=== PATIENT | female | born 1945 | race Caucasian/White ===

== ENCOUNTER 2017-11-24 10:45 | Inpatient (IN) | payer OTHER ==
[~2017-11-24] VITALS: Ht 162.6 cm; Wt 72.6 kg
[2017-11-24] MEDS ORDERED: SODIUM CHLORIDE 0.9% 500ML 500 ML IV STA (10:53)
[2017-11-24] MEDS ORDERED: ONDANSETRON HCL INJ 2 MG/ML VIAL IV STA (10:53)
[2017-11-24] MEDS ORDERED: DIATRIZOATE MEGL/DIATRIZOA SOD 30 ML BTL PO ONE (11:26)
--- NOTE | 2017-11-24 12:07 | Diagnostic Imaging Report ---
PROCEDURE: CHEST SINGLE (PORTABLE) COMPARISON: None. INDICATIONS: ABDOMINAL PAIN FINDINGS: LUNGS: No mass or infiltrate. Pulmonary vascular markings are normal. PLEURA: No effusions or pneumothorax. HEART \T\ MEDIASTINUM: The heart is within normal size-limits. BONES \T\ SOFT TISSUES: Unremarkable. CONCLUSION: No acute thoracic abnormality. Dictated by: Nikkie Cash M.D. on 11/24/2017 at 12:08 Electronically approved by: Nikkie Cash M.D. on 11/24/2017 at 12:08
[2017-11-24 12:12] LABS: BASOPHILS % 0.4 % (0.0-1.0); EOSINOPHILS # (AUTO) 0.1 (0.0-0.4); EOSINOPHILS % 0.5 % (0.0-6.0); LYMPHOCYTES # (AUTO) 1.8 (1.0-3.2); LYMPHOCYTES % 19.6 % (18.0-39.1); MEAN CORPUSCULAR HEMOGLOBIN 33.6 pg (28-32); MEAN CORPUSCULAR HGB CONC 34.1 g/dL (31-35); MEAN CORPUSCULAR VOLUME 98.3 fL (81-99); MONOCYTES # (AUTO) 0.6 (0.2-0.8); MONOCYTES % 6.7 % (4.4-11.3); NEUTROPHILS # (AUTO) 6.7 (2.1-6.9); NEUTROPHILS % 72.5 % (38.7-80.0); PLATELET COUNT 283 x10e3/uL (140-360); RED BLOOD COUNT 4.17 x10e6/uL (3.6-5.1); RED CELL DISTRIBUTION WIDTH 12.5 % (11.7-14.4)
[2017-11-24 12:38] LABS: INR 0.98; PROTHROMBIN TIME 12.2 seconds (11.9-14.5)
[2017-11-24 12:39] LABS: PARTIAL THROMBOPLASTIN TIME 25.4 seconds (23.8-35.5)
[2017-11-24 12:50] LABS: ALANINE AMINOTRANSFERASE 56 IU/L (0-55); ALBUMIN 4.4 g/dL (3.5-5.0); ALKALINE PHOSPHATASE 84 IU/L (40-150); ANION GAP 18.4 mmol/L (8-16); BLOOD UREA NITROGEN 12 mg/dL (7-26); BUN/CREATININE RATIO 13 (6-25); CARBON DIOXIDE 22 mmol/L (22-29); CHLORIDE 102 mmol/L (98-107); CREATINE KINASE 55 IU/L (29-168); CREATININE, SERUM 0.89 mg/dL (0.57-1.11); EST GLOMERULAR FILTRATION RATE > 60 ML/MIN (60-); GLUCOSE 98 mg/dL (74-118); LIPASE 26 U/L (8-78); MAGNESIUM 2.2 MG/DL (1.3-2.1); POTASSIUM 3.4 mmol/L (3.5-5.1); SODIUM 139 mmol/L (136-145)
[2017-11-24 13:36] LABS: BILIRUBIN,URINE NEGATIVE (NEGATIVE); CLARITY,URINE CLEAR (CLEAR); COLOR,URINE YELLOW (YELLOW); KETONES,URINE NEGATIVE (NEGATIVE); LEUKOCYTE ESTERASE ,URINE NEGATIVE (NEGATIVE); NITRITE,URINE NEGATIVE (NEGATIVE); PROTEIN,URINE DIPSTICK NEGATIVE (NEGATIVE); URINE UROBILINOGEN 0.2 mg/dL (0.2 - 1)
--- NOTE | 2017-11-24 13:36 | Diagnostic Imaging Report ---
PROCEDURE:CT ABDOMEN AND PELVIS WITH CONTRAST COMPARISON:None. INDICATIONS:LEFT LOWER QUADRANT PAIN TECHNIQUE: Multidetector CT scanning of the abdomen and pelvis was performed after the administration of 100 cc of nonionic contrast. Coronal and sagittal reformations were obtained. Routine protocol performed. FINDINGS: Lung bases: Lung bases are clear. Visualized portion of the mediastinum and trachea small hiatal hernia. Liver: Diffusely decreased in attenuation consistent with steatosis. The right lobe measures 18 cm in length. No mass. Biliary: Gallbladder and biliary tree are normal. Spleen: Normal size and attenuation without mass Pancreas: Normal attenuation. No mass or ductal dilatation. Adrenal Glands: No mass Kidneys: Symmetric enhancement. There are punctate low attenuating lesions in the right kidney, too small characterize. A low attenuating lesion in the lower pole of the left kidney measures 7 mm with possible enhancing component. A low attenuating lesion in the interpolar cortex measures 1.8 x 1.7 cm and may contain a linear calcification in the wall or enhancing septation. No hydronephrosis. Gastrointestinal: The stomach is normal in appearance. Small bowel is normal in diameter with normal wall thickness. There is significant diverticula in the left colon completely the sigmoid colon. There is inflammation and mural hyperemia of the mid sigmoid colon. An intramural fluid collection measures 10 mm. The large bowel is nondilated. The appendix is nonvisualized and may be absent or collapsed. Vasculature: The aorta and IVC are normal in diameter and are patent. There is mild stenosis of the celiac artery origin. SMA is widely patent. Peritoneum/Retroperitoneum: There is a small amount of posterior pelvic ascites. No loculated fluid collection. Bladder: Underdistended but otherwise normal. No ureteral dilatation. Reproductive organs: The uterus is atrophic. There no adnexal masses. Musculoskeletal: There are mild degenerative changes of the spine at L4-5. No focal osseous lesions. CONCLUSION: 1. Acute diverticulitis of the sigmoid colon with small intramural phlegmon. No drainable abscess. No bowel obstruction. 2. Hepatic steatosis and hepatomegaly. 3. Small hiatal hernia. 4. Left renal lesions could represent septated and proteinaceous/hemorrhagic cysts. This can be confirmed with CT dedicated to the kidneys on an outpatient basis. Dictated by: Nikkie Cash M.D. on 11/24/2017 at 13:36 Electronically approved by: Nikkie Cash M.D. on 11/24/2017 at 13:36
[2017-11-24] MEDS ORDERED: METRONIDAZOLE 500MG/NS 100ML 100 ML IV ONE (13:45)
[2017-11-24] MEDS ORDERED: LEVOFLOXACIN 750MG/D5W 150ML 150 ML IV ONE (13:45)
[2017-11-24 13:46] LABS: RBC,URINE 0-5 /HPF (0-5)
[2017-11-24 13:47] LABS: BACTERIA,URINE FEW /HPF; EPITHELIAL CELLS,URINE FEW /LPF; MUCUS,URINE FEW (RARE); TRANSITIONAL EPI CELLS,URINE FEW
[2017-11-24] MEDS ORDERED: SODIUM CHLORIDE 0.9% 50ML 50 ML ONE (14:11)
[2017-11-24] MEDS ORDERED: IOPAMIDOL 370 MG/ML 200 ML INFUS..BTL INJ ONE (14:11)
[2017-11-24] MEDS ORDERED: LEVOFLOXACIN 500MG/D5W 100ML IV SCH (14:30)
[2017-11-24] MEDS: D5.45%NS/KCL 20MEQ 1,000 ML IV SCH (15:03)
[2017-11-24] MEDS: ONDANSETRON HCL INJ 2 MG/ML VIAL IV PRN ×2 (15:04→23:10)
[2017-11-24] MEDS: MORPHINE SULFATE 2 MG/ML SYR IV PRN ×2 (15:04→23:10)
--- OUTSIDE RECORDS SUMMARY | 2017-11-24 15:42 | XMS REPORT ---
Author Author [facility] Address Unknown Phone Unavailable Care Team Providers Care Sourcer Name Role Phone JONATHAN ZARATE Unavailable Unavailable Problems This patient has no known problems. Allergies, Adverse Reactions, Alerts This patient has no known allergies or adverse reactions. Medications This patient has no known medications. Results Test Description Test Time Test Comments Text Results Atomic Results Result Comments CHEST SINGLE (PORTABLE) [place] [address] Patient Name: PETTY PANTOJA MR #: [id number] : 1945 Age/Sex: 72/F Req #: [id number] Adm Physician: Ordered by: AREN WAN MACHINE PRESERVATIVE FILLER Report #: [id number] Location: ER Room/Bed: Procedure: [id number] DX/CHEST SINGLE (PORTABLE) Exam Date: 11/24/17 Exam Time: 1135 REPORT STATUS: Signed PROCEDURE: CHEST SINGLE (PORTABLE) COMPARISON: None. INDICATIONS: ABDOMINAL PAIN FINDINGS: LUNGS: No mass or infiltrate. Pulmonary vascular markings are normal. PLEURA: No effusions or pneumothorax. HEART T MEDIASTINUM: The heart is within normal size-limits. BONES T SOFT TISSUES: Unremarkable. CONCLUSION: No acute thoracic abnormality. Dictated by: Oswaldo Cash M.D. on 11/24/2017 at 12: 08 Electronically approved by: Oswaldo Cash M.D. on 11/24/2017 at 12:08 Dictated By: OSWALDO CASH MD 1208 Transcribed By: CHILO on 11/24/17 1208 COPY TO: AREN WAN NP CT ABDOMEN/PELVIS W [place] [id number] [place] [address] Patient Name: PETTY PANTOJA MR #: [id number] : 1945 Age/Sex: 72/F Req #: [id number] Adm Physician: Ordered by: AREN WAN NP Report #: [id number] Location: ER Room/Bed: Procedure: [id number] CT/CT ABDOMEN/PELVIS W Exam Date: 11/24/17 Exam Time: 1310 REPORT STATUS: Signed PROCEDURE: CT ABDOMEN AND PELVIS WITH CONTRAST COMPARISON: None. INDICATIONS: LEFT LOWER QUADRANT PAIN TECHNIQUE: Multidetector CT scanning of the abdomen and pelvis was performed after the administration of 100 cc of nonionic contrast. Coronal and sagittal reformations were obtained. Routine protocol performed. FINDINGS: Lung bases: Lung bases are clear. Visualized portion of the mediastinum and trachea small hiatal hernia. Liver: Diffusely decreased in attenuation consistent with steatosis. The right lobe measures 18 cm in length. No mass. Biliary: Gallbladder and biliary tree are normal. Spleen: Normal size and attenuation without mass Pancreas: Normal attenuation. No mass or ductal dilatation. Adrenal Glands: No mass Kidneys: Symmetric enhancement. There are punctate low attenuating lesions in the right kidney, too small characterize. A low attenuating lesion in the lower pole of the left kidney measures 7 mm with possible enhancing component. A low attenuating lesion in the interpolar cortex measures 1.8 x 1.7 cm and may contain a linear calcification in the wall or enhancing septation. No hydronephrosis. Gastrointestinal: The stomach is normal in appearance. Small bowel is normal in diameter with normal wall thickness. There is significant diverticula in the left colon completely the sigmoid colon. There is inflammation and mural hyperemia of the mid sigmoid colon. An intramural fluid collection measures 10 mm. The large bowel is nondilated. The appendix is nonvisualized and may be absent or collapsed. Vasculature: The aorta and IVC are normal in diameter and are patent. There is mild stenosis of the celiac artery origin. SMA is widely patent. Peritoneum/Retroperitoneum: There is a small amount of posterior pelvic ascites. No loculated fluid collection. Bladder: Underdistended but otherwise normal. No ureteral dilatation. Reproductive organs: The uterus is atrophic. There no adnexal masses. Musculoskeletal: There are mild degenerative changes of the spine at L4-5. No focal osseous lesions. CONCLUSION: 1. Acute diverticulitis of the sigmoid colon with small intramural phlegmon. No drainable abscess. No bowel obstruction. 2. Hepatic steatosis and hepatomegaly. 3. Small hiatal hernia. 4. Left renal lesions could represent septated and proteinaceous/hemorrhagic cysts. This can be confirmed with CT dedicated to the kidneys on an outpatient basis. Dictated by: Oswaldo Cash M.D. on 11/24/2017 at 13:36 Electronically approved by: Oswaldo Cash M.D. on 11/24/2017 at 13:36 Dictated By: OSWALDO CASH MD 1331 Transcribed By: CHILO on 11/24/17 1336 COPY TO: AREN WAN NP
[2017-11-24 16:05] VITALS: BP 169/78
[2017-11-24 16:11] VITALS: BP 169/78
[2017-11-24 16:13] VITALS: BP 169/78
[2017-11-24] MEDS: PANTOPRAZOLE 40 MG 10ML VIAL IV SCH (17:06)
[2017-11-24] MEDS: METRONIDAZOLE 500MG/NS 100ML 100 ML IV SCH ×2 (17:32→23:00)
[2017-11-24] MEDS ORDERED: METRONIDAZOLE 500MG/NS 100ML IV SCH (18:00)
[2017-11-24 20:00] VITALS: BP 130/59
[2017-11-24 20:30] VITALS: BP 130/59
[2017-11-25] VITALS (8 sets, daily range): BP systolic 119–139; BP diastolic 57–63
[2017-11-25] MEDS: D5.45%NS/KCL 20MEQ 1,000 ML IV SCH ×2 (04:25→18:37)
[2017-11-25] MEDS: METRONIDAZOLE 500MG/NS 100ML 100 ML IV SCH ×3 (06:01→17:04)
[2017-11-25 07:19] LABS: BASOPHILS % 0.3 % (0.0-1.0); EOSINOPHILS # (AUTO) 0.1 (0.0-0.4); EOSINOPHILS % 1.1 % (0.0-6.0); HEMATOCRIT 35.8 % (34.2-44.1); LYMPHOCYTES # (AUTO) 1.5 (1.0-3.2); LYMPHOCYTES % 23.7 % (18.0-39.1); MEAN CORPUSCULAR HEMOGLOBIN 33.6 pg (28-32); MEAN CORPUSCULAR HGB CONC 33.5 g/dL (31-35); MEAN CORPUSCULAR VOLUME 100.3 fL (81-99); MONOCYTES # (AUTO) 0.5 (0.2-0.8); MONOCYTES % 8.4 % (4.4-11.3); NEUTROPHILS # (AUTO) 4.1 (2.1-6.9); NEUTROPHILS % 66.2 % (38.7-80.0); PLATELET COUNT 245 x10e3/uL (140-360); RED BLOOD COUNT 3.57 x10e6/uL (3.6-5.1); RED CELL DISTRIBUTION WIDTH 12.4 % (11.7-14.4)
[2017-11-25 07:39] LABS: ANION GAP 12.3 mmol/L (8-16); BLOOD UREA NITROGEN 5 mg/dL (7-26); BUN/CREATININE RATIO 6 (6-25); CARBON DIOXIDE 26 mmol/L (22-29); CHLORIDE 106 mmol/L (98-107); CREATININE, SERUM 0.77 mg/dL (0.57-1.11); EST GLOMERULAR FILTRATION RATE > 60 ML/MIN (60-); GLUCOSE 110 mg/dL (74-118); POTASSIUM 4.3 mmol/L (3.5-5.1); SODIUM 140 mmol/L (136-145)
[2017-11-25] MEDS: LEVOFLOXACIN 500MG/D5W 100ML 100 ML IV SCH (08:23)
[2017-11-25] MEDS: PANTOPRAZOLE 40 MG 10ML VIAL IV SCH ×2 (08:23→16:31)
--- NOTE | 2017-11-25 10:17 | Consultation ---
DATE OF CONSULTATION: November 25, 2017 CHIEF COMPLAINT: Abdominal pain. HISTORY OF PRESENT ILLNESS: The patient is a 72-year-old female with a 5-day history of pain in the left lower quadrant progressively more tender with constipation followed by diarrhea. The patient denied fever, chills, nausea, or vomiting. The patient had no prior episode. PAST MEDICAL HISTORY: Unremarkable for any chronic medical illness. PAST SURGICAL HISTORY: Positive for tubal ligation. ALLERGIES: THE PATIENT HAS NO DRUG ALLERGIES. SOCIAL HABITS: She does not smoke or drink. REVIEW OF SYSTEMS: No chest pain, shortness of breath or cough. PHYSICAL EXAMINATION VITAL SIGNS: Stable. She is afebrile. GENERAL: The patient is awake, alert and in mild discomfort. HEENT: Sclerae are anicteric. NECK: Supple. LUNGS: Clear. HEART: Regular rate and rhythm. No murmurs. ABDOMEN: Soft with guarding, tenderness and rebound in the left lower quadrant. EXTREMITIES: Without cyanosis or edema. The patient's white cell count is 6.2 with hemoglobin of 12. Creatinine 0.7. CT of the abdomen showed acute diverticulitis of the sigmoid colon with phlegmon formation, but no drainable abscess. ASSESSMENT: Acute diverticulitis with microperforation and phlegmon formation. PLAN: IV antibiotics. Advance diet as tolerated. Thank you for the consultation. Job#: [id number] KAMARI
[2017-11-25] MEDS: MORPHINE SULFATE 2 MG/ML SYR IV PRN ×2 (13:06→21:05)
--- NOTE | 2017-11-25 18:20 | History and Physical ---
PRIMARY CARE PHYSICIAN: Dr. Harriett Shipman. GAS REVERSER: Dr. Derick Anderson. CHIEF COMPLAINT: Acute sigmoid diverticulitis. HISTORY OF PRESENT ILLNESS: Patient is a pleasant 72-year-old female with no significant medical history, came in with a sudden onset of acute diverticulitis of the sigmoid colon with a small intramural phlegmon. No drainable abscess. The patient is otherwise stable. PAST MEDICAL HISTORY: None known. SOCIAL HISTORY: Patient does not smoke or use alcohol. No recreational drug use. ALLERGIES: NO KNOWN ALLERGIES. HOME MEDICATIONS: List will be available for review. REVIEW OF SYSTEMS: Left lower quadrant abdominal pain. PHYSICAL EXAMINATION: VITAL SIGNS: Temperature was 98.5. Blood pressure 140/88. Pulse rate is 88. Respirations 18. GENERAL: The patient is not in acute distress. HEENT: Normocephalic, atraumatic, anicteric. NECK: Supple grossly. PULMONARY: Clear. CARDIOVASCULAR: Regular rate and rhythm. ABDOMEN: Soft. Tenderness in the left lower quadrant with some guarding but no rebound. EXTREMITIES: No cyanosis or edema. NEUROLOGIC: No focal deficit. LABORATORY: Sodium is 140, potassium 4.3, chloride 106, bicarb 26, BUN is 5, creatinine 0.7, glucose 110. WBC is 9.2. Hemoglobin 14. Hematocrit 41. Platelet is 283. IMPRESSION: Acute sigmoid diverticulitis with a small perforation but no drainable abscess. PLAN: IV antibiotics. Continue to monitor the patient closely. Clear-liquid diet. Pain control. Job#: [id number] EV
[2017-11-25] MEDS: ONDANSETRON HCL INJ 2 MG/ML VIAL IV PRN (21:05)
[2017-11-26] VITALS (8 sets, daily range): BP systolic 126–142; BP diastolic 59–71
[2017-11-26] MEDS: METRONIDAZOLE 500MG/NS 100ML 100 ML IV SCH ×4 (00:10→18:00)
[2017-11-26] MEDS: MORPHINE SULFATE 2 MG/ML SYR IV PRN ×2 (05:45→18:28)
[2017-11-26] MEDS: D5.45%NS/KCL 20MEQ 1,000 ML IV SCH ×2 (06:25→10:06)
[2017-11-26 06:54] LABS: BASOPHILS % 0.4 % (0.0-1.0); EOSINOPHILS # (AUTO) 0.1 (0.0-0.4); EOSINOPHILS % 1.7 % (0.0-6.0); HEMATOCRIT 34.3 % (34.2-44.1); HEMOGLOBIN 11.5 g/dL (12.0-16.0); LYMPHOCYTES # (AUTO) 1.3 (1.0-3.2); LYMPHOCYTES % 27.5 % (18.0-39.1); MEAN CORPUSCULAR HEMOGLOBIN 33.7 pg (28-32); MEAN CORPUSCULAR HGB CONC 33.5 g/dL (31-35); MEAN CORPUSCULAR VOLUME 100.6 fL (81-99); MONOCYTES # (AUTO) 0.5 (0.2-0.8); MONOCYTES % 10.8 % (4.4-11.3); NEUTROPHILS # (AUTO) 2.7 (2.1-6.9); NEUTROPHILS % 59.2 % (38.7-80.0); PLATELET COUNT 216 x10e3/uL (140-360); RED BLOOD COUNT 3.41 x10e6/uL (3.6-5.1); RED CELL DISTRIBUTION WIDTH 12.4 % (11.7-14.4)
[2017-11-26 07:34] LABS: ANION GAP 11.6 mmol/L (8-16); BLOOD UREA NITROGEN < 5 mg/dL (7-26); CARBON DIOXIDE 26 mmol/L (22-29); CHLORIDE 106 mmol/L (98-107); CREATININE, SERUM 0.76 mg/dL (0.57-1.11); EST GLOMERULAR FILTRATION RATE > 60 ML/MIN (60-); GLUCOSE 106 mg/dL (74-118); POTASSIUM 4.6 mmol/L (3.5-5.1); SODIUM 139 mmol/L (136-145)
[2017-11-26 07:35] LABS: BUN/CREATININE RATIO 7 (6-25)
[2017-11-26] MEDS: LEVOFLOXACIN 500MG/D5W 100ML 100 ML IV SCH (10:00)
[2017-11-26] MEDS: PANTOPRAZOLE 40 MG 10ML VIAL IV SCH ×2 (10:00→21:19)
[2017-11-26] MEDS: ONDANSETRON HCL INJ 2 MG/ML VIAL IV PRN (18:28)
[2017-11-27] VITALS (7 sets, daily range): BP systolic 123–154; BP diastolic 61–67
[2017-11-27] MEDS: METRONIDAZOLE 500MG/NS 100ML 100 ML IV SCH ×2 (00:08→05:45)
[2017-11-27] MEDS: ONDANSETRON HCL INJ 2 MG/ML VIAL IV PRN ×2 (02:59→14:00)
[2017-11-27] MEDS: D5.45%NS/KCL 20MEQ 1,000 ML IV SCH (02:59)
[2017-11-27] MEDS: MORPHINE SULFATE 2 MG/ML SYR IV PRN ×2 (02:59→14:00)
[2017-11-27] MEDS: LEVOFLOXACIN 500MG/D5W 100ML 100 ML IV SCH (09:00)
[2017-11-27] MEDS: PANTOPRAZOLE 40 MG 10ML VIAL IV SCH (09:00)
[2017-11-27] MEDS ORDERED: LEVOFLOXACIN 500 MG TAB PO SCH (12:00)
[2017-11-27] MEDS: METRONIDAZOLE 500 MG TAB PO SCH ×2 (13:15→21:34)
--- NOTE | 2017-11-27 13:31 | Diagnostic Imaging Report ---
EXAM: Abdomen 1 Views INDICATION: \S\F/U ON DIVERTICULITIS \[id number] \S\1255 COMPARISON: CT abdomen and pelvis from 11/24/2017 FINDINGS: Mild of stool in the colon. No dilated loops of small bowel. No renal calculi. No abnormal soft tissue masses. Mild degenerative changes in the lumbar spine and pelvis. IMPRESSION: Nonobstructive bowel gas pattern. Signed by: Dr. Sarah Montero M.D. on 11/27/2017 1:27 PM
[2017-11-28] VITALS (7 sets, daily range): BP systolic 126–149; BP diastolic 60–67
[2017-11-28] MEDS: METRONIDAZOLE 500 MG TAB PO SCH (05:03)
[2017-11-28] MEDS ORDERED: PANTOPRAZOLE SOD 40 MG TABEC PO SCH (07:30)
[2017-11-28] MEDS ORDERED: ZOFRAN ODT4 MG SL (12:41)
[2017-11-28] MEDS ORDERED: LEVAQUIN500 MG PO (12:42)
[2017-11-28] MEDS ORDERED: FLAGYL250 MG PO (13:01)
[2017-11-28] MEDS ORDERED: TYLENOL WITH C1 EACH PO (13:02)
--- NOTE | 2017-11-28 16:46 | Discharge Summary ---
PRIMARY CARE PHYSICIAN: Dr. Harriett Shipman. BRUSH FABRICATION SUPERVISOR: Dr. Derick Anderson. FINAL DIAGNOSES: 1. Acute sigmoid diverticulitis associated with small phlegmon without any growth abscess. 2. Abdominal pain as above. SUMMARY: A 72-year-old female with acute sigmoid diverticulitis. Patient had CT scan of abdomen and pelvis, which was done and found that she had acute diverticulitis. Sigmoid colon with a small intermural phlegmon. No drainable abscess. No bowel obstruction. Repeated KUB showed nonobstructive bowel gas pattern, no perforation. Patient is stable. Se will go home today. Patient was discharged with the following medications: 1. Zofran ODT p.r.n. 2. Levaquin 5 mg daily for 3 days. 3. Flagyl 500 mg t.i.d. for 3 days. 4. Tylenol No. 3 p.r.n. for pain. DISCHARGE INSTRUCTIONS: The patient instructed to follow up with Dr. Anderson in approximately 1 to 2 weeks and primary care physician in 1 to 2 weeks. The patient is stable for discharge home today. Job#: [id number]
== END 2017-11-28 13:14 | disposition home or self-care (01) | DRG 392 ==
LOC: ER 10:45 → CATH LAB 13:42 → MED/SURG 15:39
PROVIDERS: ADMIT Internal Medicine; ATTEND Internal Medicine
DX: K57.20 Diverticulitis of large intestine with perforation and abscess without bleeding (principal)
CPT/HCPCS: 36415; 71045; 74018; 74177; 80048; 80053; 81001; 82550; 82553; 83690; 83735; 83880; 84484; 85025; 85610; 85730; 93005; 99284; J1956; J2270; J2405; J7040; Q9967